=== PATIENT | female | born 1945 | race Caucasian/White ===

== ENCOUNTER 2023-08-07 12:22 | Emergency (ER) | payer OTHER ==
[2023-08-07 12:38] VITALS: BP 147/89; PULSE 79; RESP 16; TEMP 97.6; BMI 22.3
[2023-08-07] MEDS ORDERED: ACETAMINOPHEN 325 MG TABLET (FP) ONE (13:13)
[2023-08-07] MEDS: ACETAMINOPHEN 325 MG TABLET (FP) PO ONE (13:16)
[2023-08-07] MEDS ORDERED: DIPHTH,PERTUSS(ACELL),TET 0.5 ML DISP.SYRIN IM ONE (14:13)
[2023-08-07] MEDS: DIPHTH,PERTUSS(ACELL),TET 0.5 ML DISP.SYRIN IM ONE (14:15)
== END 2023-08-07 17:44 | disposition home or self-care (01) ==
LOC: FER 12:22
PROC: 2W3DX1Z Immobilization of Left Lower Arm using Splint (ICD-10-PCS; principal; 2023-08-07)
PROC: 3E0234Z Introduction of Serum, Toxoid and Vaccine into Muscle, Percutaneous Approach (ICD-10-PCS; 2023-08-07)
DX: M25.522 Pain in left elbow (principal); S52.022A Displaced fracture of olecranon process without intraarticular extension of left ulna, initial encounter for closed fracture; M25.552 Pain in left hip; W18.39XA Other fall on same level, initial encounter
CPT/HCPCS: 29125; 70450-TC; 73070-TC-LT-FY; 90471; 90715; 99284-25